=== PATIENT | female | born 1980 ===

== ENCOUNTER 2017-05-31 17:43 | Emergency (ER) | payer OTHER ==
[2017-05-31 18:31] VITALS: BP 116/70; PULSE 76; RESP 18; TEMP 98.3; O2SAT 100
--- NOTE | 2017-05-31 18:57 | ED PDOC ---
Upper Extremity Pain/Injury Time Seen by Provider: 05/31/17 18:42 Chief Complaint (Nursing): Upper Extremity Problem/Injury Chief Complaint (Provider): Right index finger injury History Per: Patient History/Exam Limitations: no limitations Onset/Duration Of Symptoms: Days (x2) Current Symptoms Are (Timing): Still Present Additional Complaint(s): 37-year-old [id number] female presents to the ER for evaluation of right index finger injury. Patient was out drinking and is not sure exactly what happened but states she suddenly felt a pop in the finger last night. No direct trauma or fall. Today she noticed some discoloration to the finger. Denies any open wound, fever, or chills. PMD: Dr. Santana Past Medical History Reviewed: Historical Data, Nursing Documentation, Vital Signs Vital Signs: Last Vital Signs Temp 98.3 F 05/31/17 18:15 Pulse 76 05/31/17 18:15 Resp 18 05/31/17 18:15 BP 116/70 05/31/17 18:15 Pulse Ox 100 05/31/17 18:15 - Medical History PMH: No Chronic Diseases - Surgical History Surgical History: No Surg Hx - Family History Family History: States: Unknown Family Hx - Social History Current smoker - smoking cessation education provided: No Alcohol: None Drugs: Denies - Home Medications Home Medications: Ambulatory Orders Medication Instructions Recorded Ibuprofen [Motrin] 600 mg PO Q8 PRN #21 tab 05/31/17 - Allergies Allergies/Adverse Reactions: Allergies Allergy/AdvReac Type Severity Reaction Status Date / Time No Known Allergies Allergy Verified 05/31/17 18:31 Review of Systems ROS Statement: Except As Marked, All Systems Reviewed And Found Negative Constitutional: Negative for: Fever, Chills Musculoskeletal: Positive for: Other (right index finger pain) Skin: Positive for: Bruising (to right index finger) Neurological: Negative for: Numbness (and tingling) Physical Exam - Reviewed Nursing Documentation Reviewed: Yes Vital Signs Reviewed: Yes - Physical Exam Appears: Positive for: Non-toxic, No Acute Distress Head Exam: Positive for: ATRAUMATIC, NORMOCEPHALIC Skin: Positive for: Normal Color, Warm, Dry Eye Exam: Positive for: EOMI, Normal appearance, PERRL Neck: Positive for: Normal, Painless ROM Cardiovascular/Chest: Positive for: Regular Rate, Rhythm. Negative for: Murmur Respiratory: Positive for: Normal Breath Sounds. Negative for: Accessory Muscle Use, Respiratory Distress Pulses-Radial (L): 2+ Pulses-Radial (R): 2+ Extremity: Positive for: Swelling (and ecchymosis to proximal and middle phalanx of right 4th digit), Other (Difficulty with flexion and extension at PIP ; limited examination due to pain). Negative for: Deformity Neurologic/Psych: Positive for: Alert, Oriented. Negative for: Motor/Sensory Deficits - ECG O2 Sat by Pulse Oximetry: 100 (RA) Pulse Ox Interpretation: Normal - Progress ED Course And Treament: XR RIGHT HAND: NO FRACTURE DISCUSSED CASE W/ DR. SCHWARTZ, WHO WILL SEE PT IN THE OFFICE FOR SURGICAL CONSULT Medical Decision Making Medical Decision Making: Initial Impression: Finger injury Time: 18:47 Initial Plan: --X-Ray Right Hand 4th Digit Scribe Attestation: Documented by Nina Oneal, acting as a scribe for Dylon Roa PA-C Provider Scribe Attestation: All medical record entries made by the Scribe were at my direction and personally dictated by me. I have reviewed the chart and agree that the record accurately reflects my personal performance of the history, physical exam, medical decision making, and the department course for this patient. I have also personally directed, reviewed, and agree with the discharge instructions and disposition. Disposition - Clinical Impression Clinical Impression: Rupture of tendon of finger - Patient ED Disposition Is Patient to be Admitted: No Counseled Patient/Family Regarding: Studies Performed, Diagnosis, Need For Followup, Rx Given - Disposition Referrals: Randy Schwartz MD [Staff Provider] - Disposition: Routine/Home Disposition Time: 19:45 Condition: FAIR Additional Instructions: PLEASE CALL OFFICE ON SATURDAY FOR APPOINTMENT ON SATURDAY Prescriptions: Ibuprofen [Motrin] 600 mg PO Q8 PRN #21 tab PRN Reason: Pain, Moderate (4-7) Instructions: Nyla Finger (DC) Forms: [employer] (Faroese), [facility] ED School/Work Excuse - POA Present On Arrival: None
--- NOTE | 2017-06-01 09:04 | RAD ---
PROCEDURE: Right Hand Radiographs. HISTORY: HAND INJURY COMPARISON: None. FINDINGS: BONES: Normal. No fracture. JOINTS: Normal. No osteoarthritic changes. SOFT TISSUES: Normal. OTHER FINDINGS: None. IMPRESSION: Normal right hand radiographs.
== END 2017-05-31 19:57 | disposition home or self-care (01) ==
LOC: H.ER 17:43
DX: M66.9 Spontaneous rupture of unspecified tendon (principal)